=== PATIENT | male | born 1945 | race Caucasian/White ===

== ENCOUNTER 2020-10-04 11:34 | Outpatient (CLI) | payer MEDICARE, BC ==
[2020-10-05 07:59] LABS: SARS-CoV-2 PCR by NAA Not Detected (NotDetected)
== END 2020-10-04 11:35 | disposition home or self-care (01) ==
LOC: CSHLAB 11:34
PROVIDERS: ATTEND Internal Medicine Gastroenterology
DX: Z20.822 Contact with and (suspected) exposure to COVID-19 (principal); Z12.11 Encounter for screening for malignant neoplasm of colon
CPT/HCPCS: U0003; U0005

== ENCOUNTER → 2020-10-07 | Day surgery (SDC) | payer MEDICARE, BC ==
[2020-10-06 10:02] VITALS: BMI 30.4
[~2020-10-07] MED LIST: Fentanyl 100 MCG/2 ML VIAL ONE; Lidocaine 1% MPF 2 ML VIAL ONE; Lidocaine 1% PF 5 ML VIAL ONE; PROPOFOL 40 ML ONE
== END | disposition home or self-care (01) ==
LOC: CSHSDC 08:30
PROVIDERS: ATTEND Internal Medicine Gastroenterology
PROC: 0DBP8ZZ Excision of Rectum, Via Natural or Artificial Opening Endoscopic (ICD-10-PCS; principal; 2020-10-07)
DX: Z12.11 Encounter for screening for malignant neoplasm of colon (principal); D12.8 Benign neoplasm of rectum; K57.30 Diverticulosis of large intestine without perforation or abscess without bleeding; K64.9 Unspecified hemorrhoids
CPT/HCPCS: 88305; J2704; J3010